=== PATIENT | male | born 1980 | race Caucasian/White ===

== ENCOUNTER 2023-04-09 20:35 | Emergency (ER) | payer OTHER, SELFPAY ==
[2023-04-09] VITALS (15 sets, daily range): BP systolic 125–162; BP diastolic 76–90; PULSE 73–83; RESP 18; TEMP 36.4; O2SAT 94–98; BMI 35.9
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
--- NOTE | 2023-04-09 20:47 | CRLHL7_ITS ---
For Patients: As a result of the Century Cures Act, medical imaging exams and procedure reports are released immediately into your electronic medical record. You may view this report before your referring provider. If you have questions, please contact your health care provider. INDICATION: Chest pain. TECHNIQUE: Chest 2 views. COMPARISON: None. FINDINGS: Cardiovascular and mediastinum: Heart size and vasculature are normal in caliber and appearance. Lungs and pleural spaces: Lungs are clear. No sign of infiltrate or mass. No sign of pleural effusion. No pneumothorax. Bones and soft tissues: No significant findings. IMPRESSION: No acute or significant findings. Dictated by Anderson Bustos MD @ 04/09/2023 9:52:41 PM (Electronically Signed)
--- NOTE | 2023-04-09 20:47 | CRLHL7_ITS ---
For Patients: As a result of the Cures Act, medical imaging exams and procedure reports are released immediately into your electronic medical record. You may view this report before your referring provider. If you have questions, please contact your health care provider. Indication: Trauma. Technique: Left shoulder, 3 views. Comparison: None. Findings/Impression: Bones: Alignment is normal. No displaced fractures or bone lesions. Joint spaces: Unremarkable. Soft tissues: Unremarkable. Dictated by Anderson Bustos MD @ 04/09/2023 9:54:14 PM (Electronically Signed)
--- NOTE | 2023-04-09 20:59 | ED.NURSE ---
Per provider, no cardiac monitoring or IV to be ordered at this time.
== END 2023-04-09 22:12 | disposition home or self-care (01) ==
LOC: ED 21:36
PROVIDERS: Emergency Provider Family Medicine
DX: S43.102A Unspecified dislocation of left acromioclavicular joint, initial encounter (principal); V43.52XA Car driver injured in collision with other type car in traffic accident, initial encounter
CPT/HCPCS: 71046; 73030; 93005; 99284; 99291; G0390